=== PATIENT | male | born 1955 | race Caucasian/White ===

== ENCOUNTER 2016-10-05 21:30 | Inpatient (IN) ==
[2016-10-05 22:34] LABS: Basophils # 0.1 K/mcL (0.0-0.2); Basophils % 0.5 %; Eosinophils # 0.3 K/mcL (0.0-0.6); Eosinophils % 3.1 %; Hematocrit 40.9 % (37.5-50.1); Hemoglobin 13.9 g/dL (12.9-16.9); Immature Granulocytes % 0.3 % (0-4); Lymphocytes # 1.5 K/mcL (0.6-4.6); Lymphocytes % 14.8 %; Mean Corpuscular Hemoglobin 29.5 pg (28.0-33.3); Mean Corpuscular Volume 86.8 fL (83.0-100.0); Mean Platelet Volume 8.5 fL (9.4-12.4); Monocytes # 0.8 K/mcL (0.0-1.3); Monocytes % 8.2 %; Neutrophils # 7.2 K/mcL (1.6-8.9); Platelet Count 352 K/mcL (140-400); Red Blood Count 4.71 M/mcL (4.19-5.50); Red Cell Distribution Width 12.7 % (11.5-14.5); Segmented Neutrophils % 73.1 %
[2016-10-05 22:42] LABS: INR 1.1; Prothrombin Time 11.8 Seconds (9.4-12.1)
[2016-10-05 22:44] LABS: Activated Partial Thrombo Time 34.1 Seconds (26.0-36.0)
[2016-10-05 22:49] LABS: BUN/Creatinine Ratio 21 (6-26); Blood Urea Nitrogen 17 mg/dL (8-26); Calcium 9.2 mg/dL (8.6-10.8); Carbon Dioxide 26 mEq/L (19-29); Chloride 98 mEq/L (98-109); Glucose 95 mg/dL (70-99); Osmolality,Calculated 279 (280-300); Sodium 134 mEq/L (136-145); eGFR For African Americans > 60 (> 60); eGFR For Non-African Americans > 60 (> 60)
[2016-10-05] MEDS ORDERED: Aspirin 81 MG TAB.CHEW PO STA (23:13)
--- NOTE | 2016-10-06 00:12 | Emergency Department Note ---
Disposition Clinical Impression: Cerebrovascular accident Qualifiers: CVA mechanism: other Qualified Code(s): I63.8 - Other cerebral infarction Disposition: Admitted As Inpatient Condition: Fair Referrals: NO,PCP [Non-Partnered Physician] - Forms: ED Satisfaction Letter Neuro HPI - General Chief Complaint: ED Neuro Symptoms/Deficit Stated Complaint: feels like I am having a stroke Time Seen by Provider: 10/05/16 22:29 Source: patient, EMS Limitations: no limitations - History of Present Illness HPI Narrative: Patient complains of right upper and right lower extremity numbness that started about 6 PM today. Patient states the symptoms came on and he felt that the area was numb. Patient denies chest pain denies shortness of breath. Patient states he has had a CVA in the past and he had some deficits from this but he was able to perform his activities of daily living. Patient denies bowel or bladder dysfunction denies dizziness. Patient denies difficulties with speech. - Related Data Home Medications: Home Medications Medication Instructions Recorded Confirmed Albuterol Sulfate [Proair Hfa] 2 puff IH Q4H 03/09/16 03/09/16 Budesonide/Formoterol 160/4.5 1 puff IH BIDR 03/09/16 03/09/16 [Symbicort 160/4.5] Citalopram [CeleXA] 20 mg PO DAILY 03/09/16 03/09/16 Losartan/HCTZ [Hyzaar 50-12.5 1 each PO DAILY 03/09/16 03/09/16 Tablet] Metoprolol [Lopressor] 25 mg PO BID 03/09/16 03/09/16 Simvastatin [Zocor] 20 mg PO HS 03/09/16 03/09/16 Allergies/Adverse Reactions: Allergies Allergy/AdvReac Type Severity Reaction Status Date / Time acetaminophen [From [place]] AdvReac Headache Verified 03/09/16 11:20 hydrocodone [From [place]] AdvReac Headache Verified 03/09/16 11:20 All systems ED: reviewed and negative except as stated. Past Medical History - Past Medical History Source: patient Medical history: Reports: cancer, COPD, hypertension Surgical history: Reports: appendectomy, other Psychiatric history: Reports: no psych history - Social History Smoking Status: Former smoker Smokeless Tobacco Status: No Alcohol use: Reports: none Drug use: Reports: none Physical Exam - General Limitations: no limitations General appearance: alert, in no apparent distress - Head Head exam: atraumatic, normocephalic, normal inspection - Eye Eye exam: Present: normal appearance, PERRL, EOMI - ENT ENT exam: normal exam, normal oropharynx, mucous membranes moist - Neck Neck exam: Present: normal inspection, full ROM, trachea midline - Chest Chest inspection: Present: normal inspection, symmetric chest wall rise - Respiratory Respiratory exam: Present: normal lung sounds bilaterally - Cardiovascular Cardiovascular exam: Present: regular rate, normal rhythm, normal heart sounds - Abdominal Exam Abdominal exam: Present: soft, Non-Tender. Absent: tenderness, distention, guarding, rebound, rigidity - Extremities Exam Extremities exam: Present: other (Decreased strength in the right lower extremity when compared to the left. Decreased sensation in the right upper and lower extremity compared to left) - Back Exam Back exam: Present: normal inspection, full ROM. Absent: tenderness - Neurological Exam Neurological exam: Present: alert, oriented X3 - Psychiatric Psychiatric exam: Present: normal affect, normal mood - Skin Skin exam: Present: warm, dry, intact, normal color Course Vital Signs Temperature 98.2 F 10/05/16 21:40 Pulse Rate 82 10/05/16 21:40 Respiratory Rate 17 10/05/16 21:40 Blood Pressure 145/86 10/05/16 21:40 O2 Sat by Pulse Oximetry 97 10/05/16 21:40 Temperature 98.2 F 10/05/16 21:40 Pulse Rate 73 10/05/16 23:44 Respiratory Rate 18 10/05/16 23:44 Blood Pressure 145/84 10/05/16 23:44 O2 Sat by Pulse Oximetry 95 10/05/16 23:44 Oxygen Delivery Oxygen Delivery Room Air Neuro Symptoms/Deficit - MDM Narrative Medical decision making narrative: Delay in stroke alert called due to myself being in the room with another patient trying to stop a left upper extremity arterial hemorrhage. Once I arrived to the room and evaluated the patient stroke alert was initiated. [facility] was contacted and they determined the patient was not a candidate for TPA and he will have to have normal stroke workup initiated - Differential Diagnosis Likely: cerebrovascular accident - Lab Data Lab results reviewed: Yes I reviewed the patient's lab results. Result diagrams: 10/05/16 22:26 10/05/16 22:26 Lab Results 10/05/16 10/05/16 10/05/16 Range/Units 22:26 22:26 22:26 WBC 9.9 (4.3-11.1) K/mcL RBC 4.71 (4.19-5.50) M/mcL Hgb 13.9 (12.9-16.9) g/dL Hct 40.9 (37.5-50.1) % MCV 86.8 (83.0-100.0) fL MCH 29.5 (28.0-33.3) pg MCHC 34.0 (31.6-35.5) g/dL RDW 12.7 (11.5-14.5) % Plt Count 352 (140-400) K/mcL MPV 8.5 L (9.4-12.4) fL Immature Gran % 0.3 (0-4) % Seg Neutrophils % 73.1 % Lymphocytes % 14.8 % Monocytes % 8.2 % Eosinophils % 3.1 % Basophils % 0.5 % Neutrophils # 7.2 (1.6-8.9) K/mcL Lymphocytes # 1.5 (0.6-4.6) K/mcL Monocytes # 0.8 (0.0-1.3) K/mcL Eosinophils # 0.3 (0.0-0.6) K/mcL Basophils # 0.1 (0.0-0.2) K/mcL PT 11.8 (9.4-12.1) Seconds INR 1.1 APTT 34.1 (26.0-36.0) Seconds Sodium 134 L (136-145) mEq/L Potassium 4.0 (3.5-4.5) mEq/L Chloride 98 (98-109) mEq/L Carbon Dioxide 26 (19-29) mEq/L BUN 17 (8-26) mg/dL Creatinine 0.80 (0.72-1.25) mg/dL Est GFR ( Amer) > 60 (> 60) Est GFR (Non-Af Amer) > 60 (> 60) BUN/Creatinine Ratio 21 (6-26) Glucose 95 (70-99) mg/dL Calculated Osmolality 279 L (280-300) Calcium 9.2 (8.6-10.8) mg/dL Troponin I (0-0.03) ng/mL 10/05/16 Range/Units 22:26 WBC (4.3-11.1) K/mcL RBC (4.19-5.50) M/mcL Hgb (12.9-16.9) g/dL Hct (37.5-50.1) % MCV (83.0-100.0) fL MCH (28.0-33.3) pg MCHC (31.6-35.5) g/dL RDW (11.5-14.5) % Plt Count (140-400) K/mcL MPV (9.4-12.4) fL Immature Gran % (0-4) % Seg Neutrophils % % Lymphocytes % % Monocytes % % Eosinophils % % Basophils % % Neutrophils # (1.6-8.9) K/mcL Lymphocytes # (0.6-4.6) K/mcL Monocytes # (0.0-1.3) K/mcL Eosinophils # (0.0-0.6) K/mcL Basophils # (0.0-0.2) K/mcL PT (9.4-12.1) Seconds INR APTT (26.0-36.0) Seconds Sodium (136-145) mEq/L Potassium (3.5-4.5) mEq/L Chloride (98-109) mEq/L Carbon Dioxide (19-29) mEq/L BUN (8-26) mg/dL Creatinine (0.72-1.25) mg/dL Est GFR ( Amer) (> 60) Est GFR (Non-Af Amer) (> 60) BUN/Creatinine Ratio (6-26) Glucose (70-99) mg/dL Calculated Osmolality (280-300) Calcium (8.6-10.8) mg/dL Troponin I 0.00 (0-0.03) ng/mL - Radiology Data Radiology results reviewed: Yes I reviewed the patient's radiology results. Chest X-Ray 10/05/16 22:21 IMPRESSION: No acute cardiopulmonary abnormality. D/ / Reece Marley MD / Reece Marley MD Interpreting Provider: Reece Marley MD Head CT 10/05/16 22:21 IMPRESSION: No acute intracranial abnormality. D/ / 10/05/2016 22:50:09 Earl Lindsay MD / Allyson Watson Interpreting Provider: Earl Lindsay MD - EKG Data EKG attestation: Yes I reviewed and interpreted this EKG. EKG shows normal: sinus rhythm Rate: normal Rhythm: NSR TPA Checklist - LKW: 3-4.5 hrs Add. Contraindications Patient/family understanding: The patient/family members have been counseled and understood the risk, benefit , and alternatives of treatment. Critical Care Time Total Critical Care Time: 30 Attestation: Critical care performed: Time is exclusive of separately billable procedures. Time includes: direct patient care, patient reassessment, coordination of patient care, interpretation of data (laboratory data, radiology data, and respiratory data), review of patient's medical records, medical consultation and documentation of patient care. Procedures included in critical care time: Procedures excluded from critical care time:
[2016-10-06] MEDS ORDERED: Ondansetron 4 MG/2 ML VIAL IVP PRN (03:14)
[2016-10-06] MEDS ORDERED: Naloxone 0.4 MG/ML INJ IVP PRN (03:14)
[2016-10-06] MEDS ORDERED: Albuterol 2.5 MG/3 ML NEBULIZER IH PRN (03:22)
--- NOTE | 2016-10-06 03:28 | Internal Med History&Physical ---
Date of Encounter: 10/06/16 Time of Encounter: 03:00 Assessment and Plan (1) TIA (transient ischemic attack) Current visit: Yes Status: Acute 1. Symptoms resolved. 2. Will proceed with stroke work-up -- ECHO, Carotid Dopplers, lipid panel, and appropriate therapy consults. 3. Pt will need daily aspirin prophylaxis upon discharge. Qualifiers: Transient cerebral ischemia type: other Qualified Code(s): G45.8 - Other transient cerebral ischemic attacks and related syndromes (2) COPD (chronic obstructive pulmonary disease) Current visit: Yes Status: Chronic 1. NO acute exacerbation. 2. Smoking cessation well advised. 3. Will treat with PRN aerosols. Qualifiers: COPD type: emphysema Emphysema type: panlobular Qualified Code(s): J43.1 - Panlobular emphysema (3) DVT prophylaxis Current visit: Yes Status: Acute 1. Heparin SQ. Internal Medicine - H&P: HPI Chief complaint: RLE/RUE numbness and weakness Admitted From: Emergency Dept Plans for Post Hospital Care: Home History of present illness: Mr. Nair is a 61 year old male who presented to the ER with sudden onset right-sided weakness, numbness, and paresthesias in his right upper and lower extremity. Because of the symptoms and sudden onset, he presented to ER for evaluation for possible stroke. By the time he arrived and was evaluated, he was outside the time window for TPA. Furthermore, his symptoms resolved completely shortly thereafter. Consultation was made with [facility] neurology from the ER and they determined patient was not a candidate for thrombolytics. [facility] neurology did recommend stroke workup, however. He was therefore admitted to hospitalist service. Upon my assessment of the patient, he is sleeping but easily rousable. He reiterates the above history and again notes that all his symptoms have resolved completely. He denies any focal neurologic deficits whatsoever now. He does state that he has had prior stroke roughly 6 years ago. He has had no residual deficits since then. Patient denies any other concerns at the present time. He denies any chest pain, shortness of breath, fevers, chills, or night sweats. Past Med Surg Social Fam HX - Past Medical History Attestation: Yes The following information was validated with the patient. Source: patient, old records reviewed Medical history: cancer (carcinoid tumor -- resected), COPD, hypertension Psychiatric history: depression - Past Surgical History Surgical History: appendectomy, other (carcinoid tumor resection) - Social History Smoking Status: Former smoker Smokeless Tobacco Status: No Alcohol use: none Drug use: none Current living situation: Home - Independent Activity Level: Independent ambulation Recent Out of Country Travel Within the Last 8 Weeks: No - Family History Mother Living Status: Hx Family Cardiac Disorders: No Hx Family Respiratory Disorders: No Hx Family Cancer: Yes (lung cancer) Hx Family GI Disorders: No Hx Family Genitourinary Disorders: No Hx Family Endocrine Disorder: No Hx Family Musculoskeletal Disorders: No Hx Family Neuromuscular Disorders: No Hx Family Neurologic Disorders: No Hx Family HEENT Disorders: No Hx Family Autoimmune Disorders: No Hx Family Reproductive Disorders: No Hx Family Psychosocial Disorders: No Hx Family Medical Disorders: No Father Living Status: Hx Family Cardiac Disorders: No Hx Family Respiratory Disorders: No Hx Family Cancer: Yes (colon cancer) Hx Family GI Disorders: No Hx Family Genitourinary Disorders: Yes Hx Family Endocrine Disorder: No Hx Family Musculoskeletal Disorders: No Hx Family Neuromuscular Disorders: No Hx Family Neurologic Disorders: Yes (CVA) Hx Family HEENT Disorders: No Hx Family Autoimmune Disorders: No Hx Family Reproductive Disorders: No Hx Family Psychosocial Disorders: No Hx Family Medical Disorders: No Brother Living Status: Still Living Hx Family Cardiac Disorders: No Hx Family Respiratory Disorders: Yes (copd) Hx Family Cancer: No Hx Family GI Disorders: No Hx Family Genitourinary Disorders: No Hx Family Endocrine Disorder: No Hx Family Musculoskeletal Disorders: No Hx Family Neuromuscular Disorders: No Hx Family Neurologic Disorders: Yes (cva) Hx Family HEENT Disorders: No Hx Family Autoimmune Disorders: No Hx Family Reproductive Disorders: No Hx Family Psychosocial Disorders: No Hx Family Medical Disorders: No Internal Medicine - H&P: Meds Albuterol Sulfate [Proair Hfa] 2 puff IH Q4H 03/09/16 [History] Budesonide/Formoterol 160/4.5 [Symbicort 160/4.5] 1 puff IH BIDR 03/09/16 [ History] Citalopram [CeleXA] 20 mg PO DAILY 03/09/16 [History] Losartan/HCTZ [Hyzaar 50-12.5 Tablet] 1 each PO DAILY 03/09/16 [History] Metoprolol [Lopressor] 25 mg PO BID 03/09/16 [History] Simvastatin [Zocor] 20 mg PO HS 03/09/16 [History] Allergies acetaminophen [From [place]] Adverse Reaction (Verified 03/09/16 11:20) Headache hydrocodone [From [place]] Adverse Reaction (Verified 03/09/16 11:20) Headache - Constitutional Constitutional: no chills, no fatigue, no fever(s), no night sweats - EENT Eyes: no blurry vision, no change in vision Ears: no ear pain, no tinnitus Nose, mouth and throat: no nasal congestion, no sinus pain, no sinus pressure, no sore throat - Cardiovascular Cardiovascular ROS IM: no chest pain, no dyspnea, no dyspnea on exertion, no lightheadedness, no palpitations, no syncope - Respiratory Respiratory: wheezing, no cough, no dyspnea, no dyspnea on exertion, no chest congestion, no excessive phlegm production, no change in phlegm color - Gastrointestinal Gastrointestinal: no abdominal pain, no diarrhea, no nausea, no vomiting - Genitourinary Genitourinary ROS male: no dysuria, no flank pain, no hematuria - Musculoskeletal Musculoskeletal ROS IM: no arthralgias, no back pain, no muscle cramps - Integumentary Integumentary IM: no rash, no jaundice - Neurological Neurological ROS: focal weakness (right upper and lower extremity -- resolved), no dizziness, no frequent falls, no headache(s), no vertigo - Psychiatric Psychiatric: no anxiety, no depression - Endocrine Endocrine IM: no fatigue, no polydipsia, no polyuria - Hematologic/Lymphatic Hematologic/Lymphatic: no easy bruising, no lymphadenopathy - Allergic/Immunologic Allergic/Immunologic: wheezing, no uticaria, no GI upset with certain foods - Constitutional Vitals: Temp Pulse Resp BP Pulse Ox 98.1 F 75 16 144/93 98 10/06/16 01:08 10/06/16 01:08 10/06/16 01:08 10/06/16 01:08 10/06/16 01:08 General appearance: Present: cooperative, A&O X 3, pleasant, no acute distress - Head Head exam: Present: atraumatic, normal inspection - Expanded Head Exam Head exam expanded: Absent: abrasion, contusion, general tenderness - Eye Eye exam: Present: EOMI, normal appearance, PERRL. Absent: scleral icterus Pupils: Present: normal accommodation - ENT ENT exam: Present: mucous membranes moist, normal exam, normal oropharynx - Neck Neck exam general surgery: Present: full ROM, supple. Absent: lymphadenopathy, nuchal rigidity, thyromegaly - Expanded Neck Exam Neck exam: Absent: carotid bruit - Respiratory Respiratory exam: Present: CTAB. Absent: rales, rhonchi, stridor, wheezes - Cardiovascular Cardiovascular exam: Present: RRR, +S1, +S2. Absent: diastolic murmur, JVD, systolic murmur - GI/Abdominal GI/Abdominal exam: Present: normal bowel sounds, soft. Absent: hepatomegaly, mass, splenomegaly, tenderness - Extremities Exam Extremities exam: Present: full ROM, normal capillary refill, normal inspection , warm. Absent: joint swelling, tenderness - Back Exam Back exam: Present: normal inspection. Absent: CVA tenderness (L), CVA tenderness (R) - Neurological Exam Neurological exam: Present: alert, CN II-XII intact, oriented X3, reflexes normal, no focal deficits, strengths equal and symetr throughout. Absent: facial droop, speech deficit - Psychiatric Psychiatric exam: Present: normal affect, normal mood - Skin Skin exam: Present: dry, warm. Absent: rash Internal Med - H&P Results - Labs CBC & Chem 7: 10/05/16 22:26 10/05/16 22:26 - EKG Data -: EKG Interpreted by Myself - EKG Data Prior EKG available for review: no EKG comments: 10/06/16 03:38 Normal EKG
[2016-10-06] MEDS: Ipratropium/Albuterol Neb 3 ML IH SCH ×4 (04:32→22:22)
[2016-10-06 04:58] LABS: Basophils # 0.1 K/mcL (0.0-0.2); Basophils % 0.7 %; Eosinophils # 0.3 K/mcL (0.0-0.6); Eosinophils % 3.2 %; Hematocrit 39.9 % (37.5-50.1); Hemoglobin 13.3 g/dL (12.9-16.9); Immature Granulocytes % 0.5 % (0-4); Lymphocytes # 2.3 K/mcL (0.6-4.6); Lymphocytes % 21.4 %; Mean Corpuscular HGB Conc 33.3 g/dL (31.6-35.5); Mean Corpuscular Hemoglobin 28.7 pg (28.0-33.3); Mean Corpuscular Volume 86.2 fL (83.0-100.0); Mean Platelet Volume 8.9 fL (9.4-12.4); Monocytes % 9.2 %; Platelet Count 359 K/mcL (140-400); Red Blood Count 4.63 M/mcL (4.19-5.50); Red Cell Distribution Width 12.8 % (11.5-14.5)
[2016-10-06 05:16] LABS: Alanine Aminotransferase 16 Units/L (0-55); Albumin 3.4 g/dL (3.5-5.0); Albumin/Globulin Ratio 1.2 (1.1-2.2); Alkaline Phosphatase 65 Units/L (38-126); Aspartate Amino Transferase 15 Units/L (5-34); BUN/Creatinine Ratio 19 (6-26); Bilirubin,Total 0.6 mg/dL (0.2-1.2); Blood Urea Nitrogen 14 mg/dL (8-26); Calcium 8.8 mg/dL (8.6-10.8); Carbon Dioxide 26 mEq/L (19-29); Chloride 99 mEq/L (98-109); Chol/HDL Ratio 3.3 (0-4.9); Cholesterol 142 mg/dL (< 200); Globulin 2.8 g/dL (2.4-3.5); Glucose 93 mg/dL (70-99); HDL Cholesterol 43 mg/dL (40-59); LDL Cholesterol,Calculated 90 mg/dL (0-99); Magnesium 1.9 mg/dL (1.6-2.6); Osmolality,Calculated 278 (280-300); Potassium 3.5 mEq/L (3.5-4.5); Sodium 134 mEq/L (136-145); Total Protein 6.2 g/dL (6.0-8.3); Triglycerides 47 mg/dL (< 150); eGFR For African Americans > 60 (> 60); eGFR For Non-African Americans > 60 (> 60)
[2016-10-06] MEDS: *HR* Heparin 5,000 UNIT/ML VIAL SQ SCH ×2 (06:33→17:54)
[2016-10-06] MEDS: Aspirin 81 MG TAB.CHEW PO SCH (08:15)
--- NOTE | 2016-10-06 09:42 | Internal Med Progress Note ---
<Sherif Duarte - Last Filed: 10/06/16 14:27> Date of Encounter: 10/06/16 Time of Encounter: 09:42 - Assessment and plan (1) Left-sided cerebrovascular accident (CVA) Current Visit: Yes Status: Acute Assessment and plan: Pt stopped taking home med of baby ASA for last 6 weeks for bleeding in eye, which resolved now, he was given full dose ASA in the ER yesterday, MRI of brain showed small acute infarct in left posterior periventricular white matter extending along posterior left basal ganglia, symptoms resolved, lipid panel reviewed, will con't baby ASA and statin, check echo, carotid u/s, neuro consult , PT/OT to evaluate him. (2) HTN (hypertension) Current Visit: Yes Status: Acute Assessment and plan: Con't hyzaar and lopressor. Qualifiers: Qualified Code(s): I10 - Essential (primary) hypertension (3) HLD (hyperlipidemia) Current Visit: Yes Status: Acute Assessment and plan: Lipid panel reviewed, con't zocor. Qualifiers: Qualified Code(s): E78.5 - Hyperlipidemia, unspecified (4) Depression Current Visit: Yes Status: Acute Assessment and plan: Con't celexa. Qualifiers: Qualified Code(s): F32.9 - Major depressive disorder, single episode, unspecified (5) DVT prophylaxis Current Visit: Yes Status: Acute Assessment and plan: Heparin SQ. - Subjective Interval history: Pt seen and examined, right sided weakness/tingling/numbness resolved, eating fine, no other complaints. - Constitutional Vitals: Temp Pulse Resp BP Pulse Ox 98.1 F 64 18 122/75 98 10/06/16 08:00 10/06/16 08:00 10/06/16 08:00 10/06/16 08:00 10/06/16 08:00 General appearance: Present: cooperative, A&O X 3, pleasant, no acute distress - Head Head exam: Present: atraumatic, normocephalic - Eye Eye exam: Present: PERRL, conjuntiva pink, sclera anicteric Pupils: Present: PERRL - Neck Neck exam general surgery: Present: supple, trachea midline. Absent: lymphadenopathy - Respiratory Respiratory exam: Present: CTAB. Absent: accessory muscle use, rales, rhonchi, wheezes - Cardiovascular Cardiovascular exam: Present: RRR, +S1, +S2. Absent: diastolic murmur, gallop, rubs, systolic murmur - GI/Abdominal GI/Abdominal exam: Present: normal bowel sounds, soft, no peritoneal signs. Absent: distended, tenderness - Extremities Exam Extremities exam: Present: warm, radial pulses palpable and symetrical. Absent : calf tenderness, cyanotic, pedal edema - Neurological Exam Neurological exam: Present: CN II-XII intact, oriented X3, no focal deficits. Absent: pronater drift, facial droop, speech deficit - Skin Skin exam: Present: dry, intact Internal Medicine: Result - Labs CBC & Chem 7: 10/06/16 04:22 10/06/16 04:22 Labs: Short CBC 10/06/16 Range/Units 04:22 WBC 10.7 (4.3-11.1) K/mcL Hgb 13.3 (12.9-16.9) g/dL Hct 39.9 (37.5-50.1) % Plt Count 359 (140-400) K/mcL Neutrophils # 7.0 (1.6-8.9) K/mcL BMP 10/06/16 04:22 Sodium 134 L Potassium 3.5 Chloride 99 Carbon Dioxide 26 BUN 14 Creatinine 0.74 Glucose 93 Calcium 8.8 Liver Function 10/06/16 Range/Units 04:22 Total Bilirubin 0.6 (0.2-1.2) mg/dL AST 15 (5-34) Units/L ALT 16 (0-55) Units/L Alkaline Phosphatase 65 (38-126) Units/L Albumin 3.4 L (3.5-5.0) g/dL - ABG Interpretation ABG results: PT/INR, D-dimer PT 11.8 Seconds (9.4-12.1) 10/05/16 22:26 Consult Discharge Plan - Plan Referrals: Maggie Blackwood MD [Primary Care Provider] - <Izaiah Tristan - Last Filed: 10/07/16 12:47> Date of Encounter: 10/06/16 - Constitutional Vitals: Temp Pulse Resp BP Pulse Ox 97.9 F 77 16 141/82 95 10/07/16 12:24 10/07/16 12:24 10/07/16 12:24 10/07/16 12:24 10/07/16 12:24 Internal Medicine: Result - Labs CBC & Chem 7: 10/06/16 04:22 10/06/16 04:22 - ABG Interpretation ABG results: PT/INR, D-dimer PT 11.8 Seconds (9.4-12.1) 10/05/16 22:26 - Impressions Impressions Brain MRI 10/06/16 09:41 IMPRESSION: 1. There is a small acute infarct involving is the left posterior periventricular white matter extending along the posterior left basal ganglia. No significant mass effect or midline shift. 2. Mild chronic microvascular ischemic change. 3. Chronic lacunar infarcts in the left thalamus. 4. Unchanged cystic lesion within the left cerebellum, which could represent a prominent perivascular space or perhaps a neural glial cyst. These results were sent to the [facility] ([facility]) on 10/06/2016 at 1:19 pm to be communicated to the referring/covering health care provider/office. D/ / Reece Marley MD / Reece Marley MD Interpreting Provider: Reece Marley MD - Attending Attestation I examined this patient and my medical decision-making was reviewed with the Resident Physician on 10/06/16. I agree with the documented findings, disposition and treatment plan as described except to the extent set forth below. Mr. Nair is currently in observation due to concern for CVA versus TIA. He is moderate to high risk due to potential of worsening neurological status. Mr. Nair feels OK. He is up to chair and is doing well at this time. MRI shows acute CVA. Exam Alert. Comfortable Heart reg I/P 1. Acute CVA - was off ASA due to bleeding in his eye. Now restarted. Will ask neuro for any further needs. Probable d/c tomorrow if no acute or new issues.
[2016-10-06] MEDS: Budesonide/Formoterol 160/4.5 MDI IH SCH ×3 (11:09→23:22)
--- NOTE | 2016-10-06 11:22 | Electrocardiograph Report ---
[facility] Test Date: 2016-10-05 Pat Name: CALEB OLIVER Department: 103 Room: 2NE22 Gender: M Tow Driver: [id number] : 1955 Requested By: Rico Colón Order Number: [id number] Reading MD: Donna Clark Measurements Intervals [place] Rate: 64 P: 77 MD: 180 QRS: 68 QRSD: 91 T: 74 QT: 407 QTc: 417 Interpretive Statements SINUS RHYTHM EARLY REPOLARIZATION Electronically Signed On 10-06-16 11:22:10 EST by Donna Clark
[2016-10-07] MEDS: Ipratropium/Albuterol Neb 3 ML IH SCH ×3 (03:48→15:17)
[2016-10-07] MEDS: *HR* Heparin 5,000 UNIT/ML VIAL SQ SCH (06:24)
[2016-10-07] MEDS: Aspirin 81 MG TAB.CHEW PO SCH (08:52)
[2016-10-07] MEDS ORDERED: Losartan/HCTZ 50-12.5 TABLET PO SCH (09:00)
--- NOTE | 2016-10-07 09:16 | Neurology - Consult Note ---
<Bruce Akers - Last Filed: 10/07/16 15:41> Date of Encounter: 10/07/16 Time of Encounter: 09:00 Assessment and Plan (1) Left-sided cerebrovascular accident (CVA) Current Visit: Yes Status: Acute - right extremity weakness/numbness resolved, history of CVA in 2009 - no other focal neuro deficits, full ROM and muscle strength intact - MRI (10/06) revealed small acute infarct involving the left posterior periventricular white matter extending along the posterior left basal ganglia. No significant mass effect of midline shift. Mild chronic microvascular ischemic change with chronic lacunar infarcts in the left thalamus. 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 PT/OT has evaluated the patient and does not recommend further needs. He lives at home by himself and performs ADL and IADLs independently - patient had reportedly discontinued his full dose ASA prior to this event about 6 weeks ago, would recommend continuation of 324 mg ASA as outpatient - he has multiple risk factors including HTN, HLD, former smoker, and prior history - recommend follow up as outpatient History of Present Illness Chief complaint: TIA/CVA/RIGHT WEAKNESS HPI: Mr. Nair is a 61 year old male with a PMHx of HTN, HLD, left CVA (2009 without residual deficits) and previous tobacco abuse, who presented to [facility] ED via EMS due to sudden onset of weakness and numbness of the entire right upper and lower extremities. Around 1700 on 10/05 the patient was doing dishes and while walking to the bathroom he began to drag his right leg and felt uncoordinated. He also noticed his right hand had became numb. He states his right leg was so weak he almost fell to the ground but was able to slowly brace himself down. He denies dizziness, headache, syncope, chest pain, or shortness. Denies any slurring of speech or facial droop during this time. Denies loss of consciousness or muscle jerks or seizure like activity. EMS arrived and by the time he was evaluated in the ED he continued to have some right extremity numbness but was not considered a tPA candidate. He reports similar symptoms from 2009 when he was diagnosed with a left sided CVA. He did have some minimal residual deficits that resolved after a few months. He followed up with Dr. Pretty, Neurology, up until 2012. He has been taking full dose ASA 324 up until a few weeks ago he reports. Reportedly he had "bleeding in his right eye" which he described as the whites of his eye on the medial aspect was red as if he must of coughed to hard and bursted a blood vessel. Denies any visual changes or vision loss. Denies history of cardiac ischemic disease or arrhythmias such as atrial fibrillation. Denies any history of seizures. Patient was admitted to [facility] for TIA/CVA workup and Neurology consulted. Initial CT head did not demonstrate acute intracranial abnormalities. However, Brain MRI revealed a small acute infarct involving the left posterior periventricular white matter extending along the posterior left basal ganglia without significant mass effect of midline shift. Around 0400 yesterday 10/06 his symptoms have completed resolved. Carotids and ECHO ordered and completed but results are pending. On examination patient appears irritable but cooperative. He reports full strength in his right upper and lower extremities. He has been able to ambulate and use the restroom without difficulty. PT/OT has evaluated the patient and does not recommend further needs. Currently denies any complaints such as headache, chest pain, changes in vision, extremity weakness, numbness or urinary symptoms. He lives at home by himself and performs ADL and IADLs independently. Past Med Surg Social Fam HX - Past Medical History Medical history: cancer (carcinoid tumor -- resected), COPD, hypertension Psychiatric history: depression - Past Surgical History Surgical History: appendectomy, other (carcinoid tumor resection) - Social History Smoking Status: Former smoker (smoked 1ppd for 30 years) Smokeless Tobacco Status: No Alcohol use: none Drug use: none - Family History Mother Living Status: Hx Family Cardiac Disorders: No Hx Family Respiratory Disorders: No Hx Family Cancer: Yes (lung cancer) Hx Family GI Disorders: No Hx Family Genitourinary Disorders: No Hx Family Endocrine Disorder: No Hx Family Musculoskeletal Disorders: No Hx Family Neuromuscular Disorders: No Hx Family Neurologic Disorders: No Hx Family HEENT Disorders: No Hx Family Autoimmune Disorders: No Hx Family Reproductive Disorders: No Hx Family Psychosocial Disorders: No Hx Family Medical Disorders: No Father Living Status: Hx Family Cardiac Disorders: No Hx Family Respiratory Disorders: No Hx Family Cancer: Yes (colon cancer) Hx Family GI Disorders: No Hx Family Genitourinary Disorders: Yes Hx Family Endocrine Disorder: No Hx Family Musculoskeletal Disorders: No Hx Family Neuromuscular Disorders: No Hx Family Neurologic Disorders: Yes (CVA) Hx Family HEENT Disorders: No Hx Family Autoimmune Disorders: No Hx Family Reproductive Disorders: No Hx Family Psychosocial Disorders: No Hx Family Medical Disorders: No Brother Living Status: Still Living Hx Family Cardiac Disorders: No Hx Family Respiratory Disorders: Yes (copd) Hx Family Cancer: No Hx Family GI Disorders: No Hx Family Genitourinary Disorders: No Hx Family Endocrine Disorder: No Hx Family Musculoskeletal Disorders: No Hx Family Neuromuscular Disorders: No Hx Family Neurologic Disorders: Yes (cva) Hx Family HEENT Disorders: No Hx Family Autoimmune Disorders: No Hx Family Reproductive Disorders: No Hx Family Psychosocial Disorders: No Hx Family Medical Disorders: No Medications and Allergies Albuterol Sulfate [Proair Hfa] 2 puff IH Q4H PRN #2 hfa.aer.ad 10/07/16 [Rx] Aspirin 81 mg PO DAILY #30 tab.chew 10/07/16 [Rx] Budesonide/Formoterol 160/4.5 [Symbicort 160/4.5] 1 puff IH BIDR #2 inhaler [Rx] Citalopram [CeleXA] 20 mg PO DAILY #30 tablet 10/07/16 [Rx] Losartan/HCTZ [Hyzaar 50-12.5 Tablet] 1 each PO DAILY #30 tablet 10/07/16 [Rx] Metoprolol [Lopressor] 25 mg PO BID #60 tablet 10/07/16 [Rx] Simvastatin [Zocor] 20 mg PO HS #30 tablet 10/07/16 [Rx] Tiotropium [Spiriva] 18 mcg IH DAILY #2 inh 10/07/16 [Rx] Allergies acetaminophen [From [place]] Adverse Reaction (Verified 10/06/16 09:34) Headache hydrocodone [From [place]] Adverse Reaction (Verified 10/06/16 09:34) Headache All Systems: A 10-system review of systems was performed and is negative for pertinent findings except as documented above in the HPI. - Constitutional Constitutional ROS IM: weakness (right sided extremities), no fatigue, no fever( s) - Nose, Mouth, Throat Nose, mouth and throat: as per HPI - Cardiovascular Cardiovascular ROS IM: no chest pain, no dyspnea - Respiratory Respiratory IM: no dyspnea - Gastrointestinal Gastrointestinal: no nausea, no vomiting - Genitourinary Genitourinary ROS: as per HPI, no urinary hesitancy, no urinary incontinence - Musculoskeletal Musculoskeletal ROS IM: abnormal gait (resolved), numbness (resolved), tingling , no back pain, no neck pain - Integumentary Integumentary IM: as per HPI - Neurological Neurological ROS: abnormal gait, focal weakness, numbness, paresthesias, no abnormal speech, no confusion, no loss of vision, no syncope, no vertigo - Psychiatric Psychiatric general PM: as per HPI - Endocrine Endocrine IM: as per HPI - Hematologic/Lymphatic Hematologic/Lymphatic pediatric: as per HPI - Allergic/Immunologic Allergic/Immunologic ROS PM: as per HPI Physical Examination - Vital Signs Vital Signs: Initial Vital Signs Temp Pulse Resp BP Pulse Ox 98.2 F 82 17 145/86 97 10/05/16 21:40 10/05/16 21:40 10/05/16 21:40 10/05/16 21:40 10/05/16 21:40 - Exam Exam: patient is in no acute distress but is irritable - Constitutional General appearance: comfortable - Neurologic Sensorimotor examination: intact Detailed motor examination: grossly full strength in all extremities, full strength in all major muscle groups Motor examination - right side: 5/5: deltoids, biceps, triceps, wrist flexion, wrist extension, interior design principal, hip flexors, tibialis Anterior, quadriceps, toe extension (EHL), plantarflexion Motor examination - left side: 5/5: deltoids, biceps, triceps, wrist flexion, wrist extension, hip flexors, interior design principal, quadriceps, tibialis Anterior, toe extension (EHL), plantarflexion Detailed sensory examination: intact, light touch Reflex and gait examination: normal gait (No clonus, Negative Hoffmans bilaterally) Reflexes: Biceps: 2+, Triceps: 2+, Brachioradialis: 2+, Patella: 2+, Achilles: 2 + Mental Status Examination: awake, alert, oriented to person, oriented to place, oriented to time, follows commands appropriately, answers questions appropriately, no agnosia, no aphasia, no aproxia Cranial nerve examination: PERRL, EOMI, visual gonzalez intact, sensory to face intact, mastication intact, no facial asymmetry is present, no dysarthria, hearing is intact symmetrically, soft palate elevates bilaterally upon phonation , flexes SCM and trapezius muscles symmetrically with full power, tongue protrudes midline, no atrophy or facial fasiculations present Cerebellar examination: no dysmetria, performs finger to nose and heel to workman symmetrically without ataxia, no difficulty with rapid alternating movements Results - Laboratory Findings CBC and BMP: 10/06/16 04:22 10/06/16 04:22 Abnormal lab findings: Abnormal lab results MPV 8.9 fL (9.4-12.4) L 10/06/16 04:22 Sodium 134 mEq/L (136-145) L 10/06/16 04:22 POC Glucose 94 (58-89) H 10/06/16 11:03 Calculated Osmolality 278 (280-300) L 10/06/16 04:22 Albumin 3.4 g/dL (3.5-5.0) L 10/06/16 04:22 Consult Discharge Plan - Plan Instructions: Ischemic Stroke (GEN), Left Hemispheric Stroke (DC), Self Care Measures After a Stroke (DC) Referrals: Maggie Blackwood MD [Primary Care Provider] - (F/u in a week for hospital d/c f/u and recent left sided CVA. Follow up appointment requested, if your primary care provider's office does not call you by 10/09/2016 w/appointment time please call the office to obtain ) <Issa Delgadillo E - Last Filed: 10/07/16 16:26> Date of Encounter: 10/07/16 Time of Encounter: 16:20 Assessment and Plan (1) Left-sided cerebrovascular accident (CVA) Current Visit: Yes Status: Acute This patient has indeed suffered an acute lacunar infarct involving the region of the left periventricular deep white matter extending into the left basal ganglia. His neurologic examination however is normal. His workup including carotid duplex Doppler and echocardiogram have been negative. His risk factors are stated above. I would simply recommend aggressive management of his risk factors which include statins antihypertensives as well as smoking cessation. I would also consider dropping his daily aspirin was down to 81 mg order to prevent other unwanted hemorrhages. Otherwise remained discharge him at your discretion. History of Present Illness HPI: Chart was reviewed, the patient was seen and examined independently. Case was discussed with Dr. Akers. I agree with his history of present illness as stated above. All Systems: A 10-system review of systems was performed and is negative for pertinent findings except as documented above in the HPI. Review of Systems: A 10 point review of systems is consistent with a history of present illness and is otherwise negative. Physical Examination - Vital Signs Vital Signs: Initial Vital Signs Temp Pulse Resp BP Pulse Ox 98.2 F 82 17 145/86 97 10/05/16 21:40 10/05/16 21:40 10/05/16 21:40 10/05/16 21:40 10/05/16 21:40 - Neurologic Detailed motor examination: full strength in all major muscle groups Motor examination - right side: 5/5: deltoids, biceps, triceps, wrist flexion, wrist extension, interior design principal, hip flexors, tibialis Anterior, quadriceps, toe extension (EHL), plantarflexion Motor examination - left side: 5/5: deltoids, biceps, triceps, wrist flexion, wrist extension, hip flexors, interior design principal, quadriceps, tibialis Anterior, toe extension (EHL), plantarflexion Mental Status Examination: awake, alert, oriented to person, oriented to place, oriented to time, follows commands appropriately, answers questions appropriately, no agnosia, no aphasia, no aproxia Cranial nerve examination: PERRL, EOMI, visual gonzalez intact, corneal reflexes brisk symmetrically, sensory to face intact, mastication intact, no facial asymmetry is present, no dysarthria, hearing is intact symmetrically, soft palate elevates bilaterally upon phonation, gag reflex intact, flexes SCM and trapezius muscles symmetrically with full power, tongue protrudes midline, no atrophy or facial fasiculations present Cerebellar examination: no dysmetria, performs finger to nose and heel to workman symmetrically without ataxia, no gait ataxia, no truncal ataxia, no difficulty with rapid alternating movements Results - Laboratory Findings CBC and BMP: 10/06/16 04:22 10/06/16 04:22 Abnormal lab findings: Abnormal lab results MPV 8.9 fL (9.4-12.4) L 10/06/16 04:22 Sodium 134 mEq/L (136-145) L 10/06/16 04:22 POC Glucose 119 (58-89) H 10/06/16 19:51 Calculated Osmolality 278 (280-300) L 10/06/16 04:22 Albumin 3.4 g/dL (3.5-5.0) L 10/06/16 04:22
--- NOTE | 2016-10-07 09:39 | Carotid Imaging Report ---
Carotid Duplex Patient Name:Rodrigo Nair Order Number:[id number] Procedure Date:10/06/2016 Date:1955ge:61 yrs Gender:Male Lt BP:127 / 84 mmHg Rt.BP:143 / 85 mmHgHeart Rate: Location:[facility] Room #: 2NE22 Manager Stylist:Cynthia Mckeon Referring MD:Clovis Duque MD ultrasound sonographer:Maggie Blackwood MD Reading MD:Linden Dunn MD , FACS Primary Indications:TIA Risk Factors Yes/No Hypertension Yes Hypercholesterolemia Yes Smoking Current Yes Hx of CVA Yes Impressions: Findings: Bilateral carotid systems are essentially normal. Recommendations: After imaging the patient returned to their room. Findings Carotid Duplex: Right: The right proximal common carotid artery has a PSV of 65 cm/s and a EDV of 13 cm/s. The right mid common carotid artery has a PSV of 66 cm/s and a EDV of 13 cm/s. The right distal common carotid artery has a PSV of 70 cm/s and a EDV of 15 cm/s. There is nonstenotic plaque in the right bifurcation with a PSV of 48 cm/s and a EDV of 8 cm/s. The right proximal internal carotid artery has a PSV of 66 cm/s and a EDV of 19 cm/s. The right mid internal carotid artery has a PSV of 72 cm/s and a EDV of 27 cm/s. The right distal internal carotid artery has a PSV of 73 cm/s and a EDV of 25 cm/s. The right eca has a PSV of 99 cm/s and a EDV of 21 cm/s. The right vertebral artery has a PSV of 36 cm/s and a EDV of 10 cm/s. Left: The left proximal common carotid artery has a PSV of 71 cm/s and a EDV of 15 cm/s. The left mid common carotid artery has a PSV of 61 cm/s and a EDV of 13 cm/s. The left distal common carotid artery has a PSV of 67 cm/s and a EDV of 14 cm/s. There is nonstenotic plaque in the left bifurcation with a PSV of 49 cm/s and a EDV of 7 cm/s. The left proximal internal carotid artery has a PSV of 53 cm/s and a EDV of 12 cm/s. The left mid internal carotid artery has a PSV of 63 cm/s and a EDV of 22 cm/s. The left distal internal carotid artery has a PSV of 82 cm/s and a EDV of 23 cm/s. The left eca has a PSV of 78 cm/s and a EDV of 20 cm/s. The left vertebral artery has a PSV of 14 cm/s and a EDV of 3 cm/s. Prior Study: No prior study available for comparison. Carotid Results Right PSV EDV Assessment Proximal CCA 65 13 Normal Mid CCA 66 13 Normal Distal CCA 70 15 Normal Bifurcation 48 8 Non Stenotic Plaque Proximal ICA 66 19 Normal Mid ICA 72 27 Normal Distal ICA 73 25 Normal ECA 99 21 Normal Vertebral Artery 36 10 Normal Left PSV EDV Assessment Proximal CCA 71 15 Normal Mid CCA 61 13 Normal Distal CCA 67 14 Normal Bifurcation 49 7 Non Stenotic Plaque Proximal ICA 53 12 Normal Mid ICA 63 22 Normal Distal ICA 82 23 Normal ECA 78 20 Normal Vertebral Artery 14 3 Normal Ratio's Right ICA/CCA Ratio: 1.11 ICA/CCA Values: 73/66 Left ICA/CCA Ratio: 1.34 ICA/CCA Values: 82/61 Updated by Linden Dunn MD, FACS on 10/07/2016 9:32:52 AM Linden Dunn MD electronically signed on 10/07/2016 9:33:21 AM with status of Final
--- NOTE | 2016-10-07 10:01 | ECHO - Doppler Report ---
Echo with Saline Contrast Name: Rodrigo Nair Date of Study: 10/06/2016 Date: 1955 Ht: 70.0 in Medical Record#: [id number] Age: 61 Wt: 182.0 lb Gender: Male BSA: 2.01 Order #: [id number] Location: [facility] Room #: 2NE22 Reading Physician: Ramone Valle DO, MAHENDRA, JONY QUIROS Construction Controller: Cynthia Mckeon Ordering Physician: Clovis Duque MD Primary Physician: Maggie Blackwood MD Indications: TIA Impressions: LVEF 60-65%. Normal LV chamber size, wall thickness and function. Mild left ventricular diastolic dysfunction. Normal right ventricular structure and function. Suboptimal image quality, but no obvious evidence of a PFO with agitated saline contrast. Unable to estimate RVSP due to lack of adequate TR jet. No significant valvular dysfunction. Left Ventricular Wall Motion: Rest Echo Findings All wall segments showed normal motion. Findings: Study Quality * Technically adequate exam. ECG Findings * Normal sinus rhythm. Left Ventricle * LVEF 60-65%. * Normal LV chamber size, wall thickness and function. * Mild left ventricular diastolic dysfunction. Right Ventricle * Normal right ventricular structure and function. Left Atrium * Mildly dilated left atrium. Right Atrium * Normal right atrial size. Interatrial Septum * Suboptimal image quality, but no obvious evidence of a PFO with agitated saline contrast. Aortic Valve * Trileaflet aortic valve with normal function. * No aortic regurgitation. * No aortic stenosis. Mitral Valve * Normal mitral valve structure and function. * No mitral regurgitation. * No mitral stenosis. Tricuspid Valve * Normal tricuspid valve structure and function. * No tricuspid regurgitation. * Unable to estimate RVSP due to lack of adequate TR jet. Pulmonic Valve * Pulmonic valve not well visualized. * No pulmonic regurgitation. Aorta * Normally sized aortic root. Pericardium * The pericardium appears normal. IVC * Normal IVC dimensions and inspiratory collapse. Pulmonary Artery * Normal visualized portions of the main pulmonary artery. History Hypertension Hypercholesteremia History of Smoking Years 30 Packs 1 Measurements: BP: 143/ 85 2D Normal Values RVIDd: 3.10 cm <2.7 cm IVSd: 1.00 cm 0.6 - 1.0 cm LVIDd: 4.90 cm 3.7 - 5.6 cm LVPWd: 1.10 cm 0.6 - 1.1 cm LVIDs: 3.00 cm 1.5 - 3.6 cm AO: 2.50 cm < 4.0 cm LA: 3.10 cm 2.0 - 4.0cm %FS: 38.80 cm >25 % LA volume: 58 Mitral Valve Peak E:.75 m/sec Peak A:.81 m/sec E/A Ratio:0.9 Peak E' Lat Jose D:10.9 cm/s Peak E' Med Jose D:8.38 cm/s E/E' Lat Ratio:6.8 E/E' Med Ratio:8.9 Tricuspid Valve TV Regurg Peak Grad: 4.00mmHg TV Regurg Peak Jose D: 1.02m/sec Updated by Ramone Valle DO, FACBrandon, CHULA, JONY on 10/07/2016 9:55:32 AM electronically signed on 10/07/2016 9:56:27 AM with status of Final Wall Motion Ruiz: 1=Normal, 2=Hypokinesis, 3=Akinesis, 4=Dyskinesis, 5=Aneurysmal, 6=Hyperkinetic, X=Not Visualized (Blank)=Missing
[2016-10-07] MEDS: Budesonide/Formoterol 160/4.5 MDI IH SCH (10:30)
--- NOTE | 2016-10-07 13:01 | Discharge Summary ---
<Sherif Duarte - Last Filed: 10/07/16 12:56> Date of Encounter: 10/07/16 Time of Encounter: 12:56 - Discharge Diagnosis (1) Left-sided cerebrovascular accident (CVA) Priority: Primary Status: Acute (2) HTN (hypertension) Priority: Secondary Status: Acute Qualifiers: Qualified Code(s): I10 - Essential (primary) hypertension (3) HLD (hyperlipidemia) Priority: Secondary Status: Acute Qualifiers: Qualified Code(s): E78.5 - Hyperlipidemia, unspecified (4) Depression Priority: Secondary Status: Acute Qualifiers: Qualified Code(s): F32.9 - Major depressive disorder, single episode, unspecified (5) DVT prophylaxis Priority: Secondary Status: Acute - Discharge Medications Home Medications: Albuterol Sulfate [Proair Hfa] 2 puff IH Q4H PRN #2 hfa.aer.ad 10/07/16 [Rx] Aspirin 81 mg PO DAILY #30 tab.chew 10/07/16 [Rx] Budesonide/Formoterol 160/4.5 [Symbicort 160/4.5] 1 puff IH BIDR #2 inhaler [Rx] Citalopram [CeleXA] 20 mg PO DAILY #30 tablet 10/07/16 [Rx] Losartan/HCTZ [Hyzaar 50-12.5 Tablet] 1 each PO DAILY #30 tablet 10/07/16 [Rx] Metoprolol [Lopressor] 25 mg PO BID #60 tablet 10/07/16 [Rx] Simvastatin [Zocor] 20 mg PO HS #30 tablet 10/07/16 [Rx] Tiotropium [Spiriva] 18 mcg IH DAILY #2 inh 10/07/16 [Rx] Allergies/Adverse Reactions: Allergies acetaminophen [From [facility]] Adverse Reaction (Verified 10/06/16 09:34) Headache hydrocodone [From [facility]] Adverse Reaction (Verified 10/06/16 09:34) Headache Procedures/tests Complete & Pending: Procedures Performed prior 72 hours Category Date Time Status MR head/brain wo con [MR] Routine MRI 10/06/16 09:41 Completed ECG 12 lead ECG [ECG] AM 0600 Y 10/06/16 06:00 Ordered EV carotid duplex imaging BI Routine Y 10/06/16 03:21 Completed EV echocardiogram Routine Y 10/06/16 03:21 Completed Date of admission: 10/06/16 00:15 Primary care physician: Maggie Blackwood MD Consults: 10/06/16 09:41 Consult to Occupational Therapy [CONS] Routine Comment: Evaluate, develop and implement POC Consult to Physical Therapy [CONS] Routine Comment: Evaluate, develop and implement POC 10/06/16 14:17 Consult to Neurology [CONS] Routine Consulting Provider: Neurology [facility] Reason for Consult: acute small left cva Time Notified: 14:22 Call Completed: Yes Discharging clinician: Sherif Duarte Anticipated date of discharge: 10/07/16 - Patient Status Condition: Good Functional capacity at discharge: independent ambulation Overall status at discharge: patient is progressing back to baseline - Discharge Instructions Follow Up With: Maggie Blackwood MD [Primary Care Provider] - (F/u in a week for hospital d/c f/u and recent left sided CVA.) - Diet and Activity Activity: resume usual activities as tolerated Diet: low fat, low cholesterol, low salt diet Hospital course: Mr. Nair is a 61 year old male with hx of CVA came to the ER with cc of right sided upper extremity weakness, brain mri showed left sided small acute infarct in left posterior periventricular white matter, neuro was consulted, because pt was not taking home med of baby ASA for last 6 weeks for minor eye bleeding issue, he will resume his home meds of ASA, lipid panel, carotid u/s and echo were reviewed. PT/OT said no rehab needed, therefore he will be d/c to home today in stable condition. - Time Spent with Patient Total time spent providing and/or coordinating discharge services: - Constitutional Vitals: Temp Pulse Resp BP Pulse Ox 97.9 F 77 16 141/82 95 10/07/16 12:24 10/07/16 12:24 10/07/16 12:24 10/07/16 12:24 10/07/16 12:24 General appearance: Present: cooperative, A&O X 3, pleasant, no acute distress <Izaiah Tristan - Last Filed: 10/07/16 15:58> Date of Encounter: 10/07/16 - Discharge Diagnosis (1) CVA (cerebral vascular accident) Priority: Primary Status: Acute Qualifiers: CVA mechanism: thrombosis Precerebral and cerebral artery: middle cerebral artery Laterality of affected vessel: left Qualified Code(s): I63.312 - Cerebral infarction due to thrombosis of left middle cerebral artery (2) HTN (hypertension) Status: Chronic Qualifiers: Hypertension type: essential hypertension Qualified Code(s): I10 - Essential (primary) hypertension (3) COPD (chronic obstructive pulmonary disease) Priority: Secondary Status: Chronic Qualifiers: COPD type: emphysema Emphysema type: panlobular Qualified Code(s): J43.1 - Panlobular emphysema (4) Depression Status: Acute Qualifiers: Depression Type: major depressive disorder Major depression recurrence: single episode Active/Remission status: in full remission Qualified Code(s) : F32.5 - Major depressive disorder, single episode, in full remission Date of admission: 10/07/16 14:10 Primary care physician: Maggie Blackwood MD Hospital course: Mr. Nair is a 61 year old male - Time Spent with Patient Total time spent providing and/or coordinating discharge services: 39min - Constitutional Vitals: Temp Pulse Resp BP Pulse Ox 98.4 F 67 16 136/93 99 10/07/16 15:25 10/07/16 15:25 10/07/16 15:25 10/07/16 15:25 10/07/16 15:25 - Attending Attestation I examined this patient and my medical decision-making was reviewed with the Resident Physician on 10/07/16. I agree with the documented findings, disposition and treatment plan as described except to the extent set forth below. Mr. Nair feels well. He has no new symptoms. His vitals are good and he is afebrile. He is up and moving around without difficulty. Exam Alert. Comfortable Heart reg No wheeze No edema Plan D/C today. Follow up with PCP All meds refilled at discharge.
[2016-10-07 15:26] VITALS: BP 136/93
== END 2016-10-07 18:28 | disposition home or self-care (01) | DRG 66 ==
LOC: 2NENU 21:30 → EMEROO 21:30 → 2NENU 10-06 00:55
PROVIDERS: ADMIT Hospitalist; ATTEND Internal Medicine